=== PATIENT | male | born 1960 | race Caucasian/White ===

== ENCOUNTER 2018-02-01 13:56 | Observation (INO) | payer BC ==
[2018-02-01] VITALS (7 sets, daily range): BP systolic 117–179; BP diastolic 69–106; PULSE 58–76; RESP 18–22; TEMP 97.3–97.8; O2SAT 95–98
[~2018-02-01] VITALS: Ht 172.7 cm; Wt 126.0 kg
--- NOTE | 2018-02-01 14:23 | PD ---
HPI Chief Complaint: Chest Pain Time Seen by Provider: 14:21 Travel History International Travel<30 days: No Contact w/Intl Traveler<30days: No Traveled to known affect area: No History of Present Illness HPI 57-year-old male presents emergency department with history of substernal chest pain with radiation to the left arm which is been intermittent over the past 6 days. It is more prominent today. It is worse with exertion. Patient has history of CABG in 2011. 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 Patient took a baby aspirin this morning. Currently his pain is about a 4 out of 10. He denies shortness of breath. He denies recent illness, fever, nausea, vomiting, or other symptoms. States he is allergic to azithromycin. PFSH Past Medical History High Cholesterol: Yes Hypertension: Yes Myocardial Infarction: Yes Past Surgical History Coronary Artery Bypass Graft: Yes (DOUBLE BYPASS) Social History Alcohol Use: Yes (RARE) Tobacco Use: No (QUIT 1992) Substance Use: No Allergies-Medications (Allergen,Severity, Reaction): Coded Allergies: azithromycin (Verified Allergy, Intermediate, Rash, 02/01/18) Reported Meds & Prescriptions Reported Meds & Active Scripts Active Reported Zetia (Ezetimibe) 10 Mg Tab 10 Mg PO DAILY Atorvastatin (Atorvastatin Calcium) 40 Mg Tab 40 Mg PO HS Metoprolol Tartrate 25 Mg Tab 12.5 Mg PO BID Amlodipine (Amlodipine Besylate) 10 Mg Tab 10 Mg PO DAILY Lisinopril 10 Mg Tab 10 Mg PO DAILY Aspirin 81 Mg Chew 81 Mg CHEW DAILY Review of Systems Except as stated in HPI: all other systems reviewed are Neg General / Constitutional: No: Fever Eyes: No: Visual changes HENT: No: Headaches Cardiovascular: Positive: Chest Pain or Discomfort, Diaphoresis, Dyspnea on exertion, No: Palpitations, Irregular Rhythm, Tachycardia, Syncope, Varicosities , Edema, Cyanosis, Varicosities, Phlebitis, Claudication Respiratory: No: Shortness of Breath Gastrointestinal: No: Nausea, Vomiting, Abdominal Pain Genitourinary: No: Dysuria Musculoskeletal: No: Pain Skin: No Rash Neurologic: No: Weakness Psychiatric: No: Depression Endocrine: No: Polydipsia Hematologic/Lymphatic: No: Easy Bruising Physical Exam Narrative GENERAL: Patient appears in no obvious distress. SKIN: Warm and mild diaphoresis. Normal color. Turgor. HEAD: Atraumatic. Normocephalic. EYES: Pupils equal and round. No scleral icterus. No injection or drainage. ENT: No nasal bleeding or discharge. Mucous membranes pink and moist. Pharynx is clear. Airways patent. NECK: Trachea midline. No JVD. Supple nontender. CARDIOVASCULAR: Regular rate and rhythm. No murmurs gallops or rubs. RESPIRATORY: No accessory muscle use. Clear to auscultation. Breath sounds equal bilaterally. MUSCULOSKELETAL: Extremities without clubbing, cyanosis, or edema. No obvious deformities. NEUROLOGICAL: Awake and alert. No obvious cranial nerve deficits. Motor grossly within normal limits. Five out of 5 muscle strength in the arms and legs. Normal speech. PSYCHIATRIC: Appropriate mood and affect; insight and judgment normal. Data Data Last Documented VS Vital Signs Date Time Temp Pulse Resp B/P (MAP) Pulse Ox O2 Delivery O2 Flow Rate FiO2 02/01/18 14:27 Nasal Cannula 2.00 02/01/18 14:27 73 179/106 (130) 02/01/18 14:26 98 02/01/18 14:20 22 Orders Orders Electrocardiogram (02/01/18 14:23) Ckmb (Isoenzyme) Profile (02/01/18 14:23) Complete Blood Count With Diff (02/01/18 14:23) Comprehensive Metabolic Panel (02/01/18 14:23) Magnesium (Mg) (02/01/18 14:23) Prothrombin Time / Inr (Pt) (02/01/18 14:23) Act Partial Throm Time (Ptt) (02/01/18 14:23) Troponin I (02/01/18 14:23) Chest, Single Ap (02/01/18 14:23) Ecg Monitoring (02/01/18 14:23) Bilateral Bp Monitoring (02/01/18 14:23) Iv Access Insert/Monitor (02/01/18 14:23) Oximetry (02/01/18 14:23) Oxygen Administration (02/01/18 14:23) Aspirin Chew (Aspirin Chew) (02/01/18 14:30) Morphine Inj (Morphine Inj) (02/01/18 14:30) Nitroglycerin 2% Oint (Nitroglycerin 2% (02/01/18 14:30) Sodium Chloride 0.9% Flush (Ns Flush) (02/01/18 14:30) Sodium Chlorid 0.9% 500 Ml Inj (Ns 500 M (02/01/18 14:30) Labs Laboratory Tests Test 02/01/18 14:25 White Blood Count 7.8 TH/MM3 Red Blood Count 5.30 MIL/MM3 Hemoglobin 16.1 GM/DL Hematocrit 46.9 % Mean Corpuscular Volume 88.5 FL Mean Corpuscular Hemoglobin 30.4 PG Mean Corpuscular Hemoglobin Concent 34.4 % Red Cell Distribution Width 13.4 % Platelet Count 230 TH/MM3 Mean Platelet Volume 8.7 FL Neutrophils (%) (Auto) 64.0 % Lymphocytes (%) (Auto) 25.0 % Monocytes (%) (Auto) 9.2 % Eosinophils (%) (Auto) 1.3 % Basophils (%) (Auto) 0.5 % Neutrophils # (Auto) 5.0 TH/MM3 Lymphocytes # (Auto) 1.9 TH/MM3 Monocytes # (Auto) 0.7 TH/MM3 Eosinophils # (Auto) 0.1 TH/MM3 Basophils # (Auto) 0.0 TH/MM3 CBC Comment DIFF FINAL Differential Comment Prothrombin Time 10.2 SEC Prothromb Time International Ratio 1.0 RATIO Activated Partial Thromboplast Time 26.3 SEC Blood Urea Nitrogen 13 MG/DL Creatinine 1.35 MG/DL Random Glucose 193 MG/DL Total Protein 7.5 GM/DL Albumin 4.2 GM/DL Calcium Level 8.6 MG/DL Magnesium Level 2.3 MG/DL Alkaline Phosphatase 73 U/L Aspartate Amino Transf (AST/SGOT) 22 U/L Alanine Aminotransferase (ALT/SGPT) 52 U/L Total Bilirubin 0.5 MG/DL Sodium Level 139 MEQ/L Potassium Level 3.9 MEQ/L Chloride Level 102 MEQ/L Carbon Dioxide Level 27.8 MEQ/L Anion Gap 9 MEQ/L Estimat Glomerular Filtration Rate 54 ML/MIN Total Creatine Kinase 100 U/L Troponin I LESS THAN 0.02 NG/ML MDM Medical Decision Making Medical Screen Exam Complete: Yes Emergency Medical Condition: Yes Medical Record Reviewed: Yes Differential Diagnosis Atypical chest pain. Angina. STEMI. Non-STEMI. Narrative Course Patient appears medically stable at time of exam. EKG shows sinus rhythm with sinus arrhythmia. EKG is reviewed with Dr. Panchal who does not feel it reflects acute cardiac syndrome. Labs ordered including CBC, CMP, cardiac panel. IV access is obtained the patient is given 2 mg morphine IV as well as 500 mL of normal saline bolus per Patient is given 324 mg aspirin p.o. 2 inches of Nitropaste is placed. Chest x-ray is ordered. Chest x-ray is unremarkable for acute process per radiologist. CBC is unremarkable. Coagulation studies normal with a PT of 10.2, INR is 1.0. CMP significant for creatinine 1.35, GFR is 54, random glucose is elevated 193 otherwise no acute findings are noted. Troponin less than 0.02. Patient is pain-free on reassessment. Patient will be admitted to the chest pain center for further evaluation and treatment Diagnosis Primary Impression: Chest pain Qualified Codes: R07.9 - Chest pain, unspecified Admitting Information Admitting Physician Requests: Observation Condition: Stable Kenney Rodríguez February 01, 2018 14:23
[2018-02-01] MEDS ORDERED: AMLO10TA2 PO (14:25)
[2018-02-01] MEDS ORDERED: ASPI-516 CHEW (14:25)
[2018-02-01] MEDS ORDERED: EZET10 PO (14:25)
[2018-02-01] MEDS ORDERED: LISI10TA3 PO (14:25)
[2018-02-01] MEDS ORDERED: METO25TA3 PO (14:25)
[2018-02-01] MEDS ORDERED: ATOR40TA16 PO (14:25)
[2018-02-01] MEDS ORDERED: SODIUM CHLORIDE 0.9% FLUSH 10 ML FLUSH IVF PRN (14:30)
[2018-02-01] MEDS ORDERED: NITROGLYCERIN 2% OINT 1 GM PACKET TOP ONE (14:30)
[2018-02-01] MEDS ORDERED: SODIUM CHLORID 0.9% 500 ML INJ 500 ML IV ONE (14:30)
[2018-02-01] MEDS ORDERED: ASPIRIN 81 MG CHEW TAB PO ONE (14:30)
[2018-02-01] MEDS ORDERED: MORPHINE SULFATE 4 MG/ML INJ IV PUSH ONE (14:30)
--- NOTE | 2018-02-01 14:47 | RADRPT ---
EXAM DATE: 02/01/2018 2:40 PM EDT AGE/SEX: 57 years / Male INDICATIONS: Chest pain and shortness of breath. CLINICAL DATA: This is the patient's initial encounter. Patient reports that signs and symptoms have been present for 1 day and indicates a pain score of 5/10. MEDICAL/SURGICAL HISTORY: Diabetes mellitus type II. Heart. . Triple bypass. COMPARISON: No prior [facility] exams available for comparison. FINDINGS: Median sternotomy wires. No significant focal pleural or parenchymal opacities. Cardiac silhouette is borderline in size. Pulmonary vascularity is within normal limits given portable technique. Bony tho rax is intact. CONCLUSION: 1. Postsurgical features without acute abnormality. Electronically signed by: Endy Tovar MD 02/01/2018 2:46 PM EDT
--- NOTE | 2018-02-01 14:56 | PD ---
Physical Exam Date Seen by Provider: February 01, 2018 Time Seen by Provider: 14:51 Narrative The patient is a 57-year-old male was initially evaluated by in August ARVIN. Please refer to the initial history, physical, diagnostic evaluation, and treatment modality plan. Data Data Last Documented VS Vital Signs Date Time Temp Pulse Resp B/P (MAP) Pulse Ox O2 Delivery O2 Flow Rate FiO2 02/01/18 15:39 68 135/79 (97) 97 Nasal Cannula 02/01/18 14:27 2.00 02/01/18 14:20 22 Orders Orders Electrocardiogram (02/01/18 14:23) Ckmb (Isoenzyme) Profile (02/01/18 14:23) Complete Blood Count With Diff (02/01/18 14:23) Comprehensive Metabolic Panel (02/01/18 14:23) Magnesium (Mg) (02/01/18 14:23) Prothrombin Time / Inr (Pt) (02/01/18 14:23) Act Partial Throm Time (Ptt) (02/01/18 14:23) Troponin I (02/01/18 14:23) Chest, Single Ap (02/01/18 14:23) Ecg Monitoring (02/01/18 14:23) Bilateral Bp Monitoring (02/01/18 14:23) Iv Access Insert/Monitor (02/01/18 14:23) Oximetry (02/01/18 14:23) Oxygen Administration (02/01/18 14:23) Aspirin Chew (Aspirin Chew) (02/01/18 14:30) Morphine Inj (Morphine Inj) (02/01/18 14:30) Nitroglycerin 2% Oint (Nitroglycerin 2% (02/01/18 14:30) Sodium Chloride 0.9% Flush (Ns Flush) (02/01/18 14:30) Sodium Chlorid 0.9% 500 Ml Inj (Ns 500 M (02/01/18 14:30) Admit Order (Ed Use Only) (02/01/18 15:35) Labs Laboratory Tests Test 02/01/18 14:25 White Blood Count 7.8 TH/MM3 Red Blood Count 5.30 MIL/MM3 Hemoglobin 16.1 GM/DL Hematocrit 46.9 % Mean Corpuscular Volume 88.5 FL Mean Corpuscular Hemoglobin 30.4 PG Mean Corpuscular Hemoglobin Concent 34.4 % Red Cell Distribution Width 13.4 % Platelet Count 230 TH/MM3 Mean Platelet Volume 8.7 FL Neutrophils (%) (Auto) 64.0 % Lymphocytes (%) (Auto) 25.0 % Monocytes (%) (Auto) 9.2 % Eosinophils (%) (Auto) 1.3 % Basophils (%) (Auto) 0.5 % Neutrophils # (Auto) 5.0 TH/MM3 Lymphocytes # (Auto) 1.9 TH/MM3 Monocytes # (Auto) 0.7 TH/MM3 Eosinophils # (Auto) 0.1 TH/MM3 Basophils # (Auto) 0.0 TH/MM3 CBC Comment DIFF FINAL Differential Comment Prothrombin Time 10.2 SEC Prothromb Time International Ratio 1.0 RATIO Activated Partial Thromboplast Time 26.3 SEC Blood Urea Nitrogen 13 MG/DL Creatinine 1.35 MG/DL Random Glucose 193 MG/DL Total Protein 7.5 GM/DL Albumin 4.2 GM/DL Calcium Level 8.6 MG/DL Magnesium Level 2.3 MG/DL Alkaline Phosphatase 73 U/L Aspartate Amino Transf (AST/SGOT) 22 U/L Alanine Aminotransferase (ALT/SGPT) 52 U/L Total Bilirubin 0.5 MG/DL Sodium Level 139 MEQ/L Potassium Level 3.9 MEQ/L Chloride Level 102 MEQ/L Carbon Dioxide Level 27.8 MEQ/L Anion Gap 9 MEQ/L Estimat Glomerular Filtration Rate 54 ML/MIN Total Creatine Kinase 100 U/L Troponin I LESS THAN 0.02 NG/ML [facility] Medical Record Reviewed: Yes Supervised Visit with JOANN: Yes Interpretation(s) EKG reveals sinus rhythm with sinus arrhythmia. Wavy baseline aVF. Inverted T- wave in lead III. Q-wave noted in lead III and aVF. Last Impressions Chest X-Ray 02/01/18 8651 Signed Impressions: CONCLUSION: 1. Postsurgical features without acute abnormality. Laboratory Tests Test 02/01/18 14:25 White Blood Count 7.8 TH/MM3 Red Blood Count 5.30 MIL/MM3 Hemoglobin 16.1 GM/DL Hematocrit 46.9 % Mean Corpuscular Volume 88.5 FL Mean Corpuscular Hemoglobin 30.4 PG Mean Corpuscular Hemoglobin Concent 34.4 % Red Cell Distribution Width 13.4 % Platelet Count 230 TH/MM3 Mean Platelet Volume 8.7 FL Neutrophils (%) (Auto) 64.0 % Lymphocytes (%) (Auto) 25.0 % Monocytes (%) (Auto) 9.2 % Eosinophils (%) (Auto) 1.3 % Basophils (%) (Auto) 0.5 % Neutrophils # (Auto) 5.0 TH/MM3 Lymphocytes # (Auto) 1.9 TH/MM3 Monocytes # (Auto) 0.7 TH/MM3 Eosinophils # (Auto) 0.1 TH/MM3 Basophils # (Auto) 0.0 TH/MM3 CBC Comment DIFF FINAL Differential Comment Prothrombin Time 10.2 SEC Prothromb Time International Ratio 1.0 RATIO Activated Partial Thromboplast Time 26.3 SEC Blood Urea Nitrogen 13 MG/DL Creatinine 1.35 MG/DL Random Glucose 193 MG/DL Total Protein 7.5 GM/DL Albumin 4.2 GM/DL Calcium Level 8.6 MG/DL Magnesium Level 2.3 MG/DL Alkaline Phosphatase 73 U/L Aspartate Amino Transf (AST/SGOT) 22 U/L Alanine Aminotransferase (ALT/SGPT) 52 U/L Total Bilirubin 0.5 MG/DL Sodium Level 139 MEQ/L Potassium Level 3.9 MEQ/L Chloride Level 102 MEQ/L Carbon Dioxide Level 27.8 MEQ/L Anion Gap 9 MEQ/L Estimat Glomerular Filtration Rate 54 ML/MIN Total Creatine Kinase 100 U/L Troponin I LESS THAN 0.02 NG/ML Differential Diagnosis Differential diagnosis includes acute coronary syndrome, STEMI, cardiomyopathy, pulmonary embolism, GERD, esophageal spasm. Narrative Course IV was established, labs are drawn and sent, and the patient was placed on cardiac telemetry monitoring and continuous pulse oximetry monitoring. EKG was ordered and interpreted. Chest x-ray was obtained. The patient was administered Nitropaste and aspirin. The patient was initially evaluated by 80s of her PA-C, please refer to the initial history, physical, diagnostic evaluation, and treatment modality plan. The patient had a CABG approximately 5 years ago, had a stress test 1 year afterwards, but has not followed up with his small products assembler in several years. The patient does have a history of hypertension, hyperlipidemia, diabetes, and CAD with previous CABG. Chest x- ray is unremarkable. The patient's initial troponin is negative. The patient will be placed in a chest pain center for serial cardiac enzymes and further evaluation by cardiology for possible stress test. Physician Communication Physician Communication The patient will be 23 hour observation to the chest pain center for serial cardiac enzymes and further evaluation by cardiology for possible stress test. Diagnosis Primary Impression: Chest pain Qualified Codes: R07.9 - Chest pain, unspecified Admitting Information Admitting Physician Requests: Observation Condition: Stable Tru Panchal MD February 01, 2018 14:56
[2018-02-01 15:05] LABS: BASOPHIL % 0.5 % (0.0-2.0); EOSINOPHIL # 0.1 TH/MM3 (0-0.4); EOSINOPHIL % 1.3 % (0.0-4.0); HEMATOCRIT 46.9 % (39.0-51.0); HEMOGLOBIN 16.1 GM/DL (13.0-17.0); LYMPHOCYTE # 1.9 TH/MM3 (1.0-4.8); MEAN CELL VOLUME 88.5 FL (80.0-100.0); MEAN CORPUSCULAR HEMOGLOBIN 30.4 PG (27.0-34.0); MEAN CORPUSCULAR HGB CONC 34.4 % (32.0-36.0); MEAN PLATELET VOLUME 8.7 FL (7.0-11.0); MONO % 9.2 % (0.0-8.0); MONOCYTE # 0.7 TH/MM3 (0-0.9); PLATELET COUNT 230 TH/MM3 (150-450); RED CELL DISTRIBUTION WIDTH 13.4 % (11.6-17.2); WHITE BLOOD COUNT 7.8 TH/MM3 (4.0-11.0)
[2018-02-01 15:20] LABS: ALBUMIN 4.2 GM/DL (3.4-5.0); ALT (GPT) 52 U/L (12-78); AST (GOT) 22 U/L (15-37); BICARBONATE 27.8 MEQ/L (21.0-32.0); BLOOD UREA NITROGEN 13 MG/DL (7-18); CALCIUM 8.6 MG/DL (8.5-10.1); CHLORIDE 102 MEQ/L (98-107); CREATININE 1.35 MG/DL (0.60-1.30); GLOMERULAR FILTRATION RATE 54 ML/MIN (>89); GLUCOSE,RANDOM 193 MG/DL (74-106); MAGNESIUM 2.3 MG/DL (1.5-2.5); SODIUM (NA) 139 MEQ/L (136-145)
[2018-02-01 15:24] LABS: ALKALINE PHOSPHATASE 73 U/L (45-117); TOTAL BILIRUBIN ADULT 0.5 MG/DL (0.2-1.0); TOTAL PROTEIN 7.5 GM/DL (6.4-8.2); TROPONIN I LESS THAN 0.02 NG/ML (0.02-0.05)
[2018-02-01 15:25] LABS: PROTHROMBIN TIME - PATIENT 10.2 SEC (9.8-11.6)
[2018-02-01] MEDS ORDERED: METF500T PO (15:36)
[2018-02-01] MEDS ORDERED: ONDANSETRON ODT 4 MG TAB PO PRN (16:00)
[2018-02-01] MEDS ORDERED: NITROGLYCERIN 0.4 MG SL 25 TABS/BTL SL PRN (16:00)
--- NOTE | 2018-02-01 17:55 | HHI.HP ---
HPI Primary Care Physician PCP in [place], [place] Chief Complaint Chest pressure History of Present Illness 57-year-old male with history of coronary artery disease, CABG 2 (2011), hypertension, hyperlipidemia, and diabetes presents emergency room for further evaluation chest pressure. Onset "for a while" unable to give accurate account of weeks or months, stating "I try not to let anyone know and I don't tell my ." Endorses worsening of chest pressure on Sunday, after mowing his lawn. Location left anterior chest. Moderate severity. No radiation. Duration lasted all day, did not wax or wane in intensity. Associated symptoms included nausea, dyspnea, and diaphoresis. No known precipitating or relieving factors. In fact, states chest pressure and dyspnea never fully resolved this week. Worsening dyspnea after walking one flight of stairs with accompanying chest pressure. Dyspnea generally recovers within 5 minutes, however chest pressure lingers. Chest pressure persists. States Nitro paste "might have helped some." Endorses similar symptoms prior to CABG in 2011. Became dyspneic today after walking a flight of stairs. A coworker noticed his distress and encouraged him to come to ER. Review of Systems General: No fatigue, weakness, fever, chills, recent illness, or change in appetite. Progressively worse chest pressure "for some time now," occurring after exertion. HEENT: No ALLEN, no vision changes, no nasal congestion or drainage, no dysphasia, no GERD CV: Continues to have chest pressure as stated above. RESP: Exertional dyspnea, no resting dyspnea, no cough, wheeze, recent URI, hemoptysis, or history of asthma GI: Intermittent nausea x1 week not always occurring with chest pressure. No vomiting, bowel changes, diarrhea, constipation, pain, distention, melena, or blood in the stool. : No dysuria, urgency, or frequency. History of kidney stone. EXT: No lower leg edema, no paraesthesias MS: No discomfort, injury, or change in ROM NEURO: No change in memory, dizziness, difficulty with balance, LOC, or motor/ sensory deficits PSYCH: No anxiety, depression, or suicidal ideation SKIN: No rashes, no concerning lesions Past Family Social History Allergies: Coded Allergies: azithromycin (Verified Allergy, Intermediate, Rash, 02/01/18) Past Medical History Coronary artery disease, hypertension, hyperlipidemia, diabetes, MS, renal calculi Past Surgical History CABG 2 (2011-[facility]) Reported Medications Reported Meds & Active Scripts Active Reported Metformin (Metformin HCl) 500 Mg Tab 500 Mg PO DAILY Zetia (Ezetimibe) 10 Mg Tab 10 Mg PO DAILY Atorvastatin (Atorvastatin Calcium) 40 Mg Tab 40 Mg PO HS Metoprolol Tartrate 25 Mg Tab 12.5 Mg PO BID Amlodipine (Amlodipine Besylate) 10 Mg Tab 10 Mg PO DAILY Lisinopril 10 Mg Tab 10 Mg PO DAILY Aspirin 81 Mg Chew 81 Mg CHEW DAILY Active Ordered Medications Current Medications Medications (Trade) Dose Ordered Sig/Saida Route Start Time Stop Time Status Last Admin (NS Flush) 2 ml UNSCH PRN IVF 02/01/18 14:30 (NS Flush) 2 ml BID IV FLUSH 02/01/18 21:00 (Tylenol) 500 mg Q4H PRN PO 02/01/18 16:00 (Nitrostat Sl) 0.4 mg Q5M PRN SL 02/01/18 16:00 (Aspirin) 325 mg DAILY PO 02/02/18 09:00 (Zofran Odt) 4 mg Q6H PRN PO 02/01/18 16:00 Family History Positive for early onset cardiovascular disease. Father required angioplasties in mid 40s. Social History Known coronary artery disease, hypertension, hyperlipidemia, and diabetes. Former smoker quit 1992. States smoking less than one half pack daily. Denies any alcohol or illegal drug use. . 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 No recent cardiac testing. Last chemical stress test in 2012. No history of congestive heart failure. Physical Exam Vital Signs Vital Signs Date Time Temp Pulse Resp B/P (MAP) Pulse Ox O2 Delivery O2 Flow Rate FiO2 02/01/18 15:39 68 135/79 (97) 97 Nasal Cannula 02/01/18 14:27 Nasal Cannula 2.00 02/01/18 14:27 73 179/106 (130) 02/01/18 14:26 98 Room Air 02/01/18 14:25 Room Air 02/01/18 14:20 74 22 97 Room Air Physical Exam GENERAL: Alert WN, WD, NAD, pleasant, obese, male HEAD: NC, AT EYES: Sclera clear, conjunctiva without injection, pupils equal and round ENT: Mucous membranes pink and moist, no nasal discharge or bleeding CV: RRR, without murmur, rub, gallop, no JVD, S1-S2 no S3-S4. Chest wall nontender with palpation. RESP: Clear lungs throughout bilateral, no crackles, wheeze, rhonchi, symmetrical chest rise, nonlabored, able to speak in full sentences ABD: Soft, NT, ND, no masses, positive bowel tones EXT: Pulses +2x4, no dependent edema MS: Normal tone x4 extremities, no obvious deformities, full range of motion NEURO: CN II through CN XII grossly intact, motor strength 5/5 PSYCH: A+O x3, flat affect, appropriate speech, mood. Questionable insight and judgment. SKIN: Normal turgor, normal texture, no lesions, no rashes, brisk cap refill, even hair distribution Laboratory Laboratory Tests Test 02/01/18 14:25 White Blood Count 7.8 Red Blood Count 5.30 Hemoglobin 16.1 Hematocrit 46.9 Mean Corpuscular Volume 88.5 Mean Corpuscular Hemoglobin 30.4 Mean Corpuscular Hemoglobin Concent 34.4 Red Cell Distribution Width 13.4 Platelet Count 230 Mean Platelet Volume 8.7 Neutrophils (%) (Auto) 64.0 Lymphocytes (%) (Auto) 25.0 Monocytes (%) (Auto) 9.2 Eosinophils (%) (Auto) 1.3 Basophils (%) (Auto) 0.5 Neutrophils # (Auto) 5.0 Lymphocytes # (Auto) 1.9 Monocytes # (Auto) 0.7 Eosinophils # (Auto) 0.1 Basophils # (Auto) 0.0 CBC Comment DIFF FINAL Differential Comment Prothrombin Time 10.2 Prothromb Time International Ratio 1.0 Activated Partial Thromboplast Time 26.3 Blood Urea Nitrogen 13 Creatinine 1.35 Random Glucose 193 Total Protein 7.5 Albumin 4.2 Calcium Level 8.6 Magnesium Level 2.3 Alkaline Phosphatase 73 Aspartate Amino Transf (AST/SGOT) 22 Alanine Aminotransferase (ALT/SGPT) 52 Total Bilirubin 0.5 Sodium Level 139 Potassium Level 3.9 Chloride Level 102 Carbon Dioxide Level 27.8 Anion Gap 9 Estimat Glomerular Filtration Rate 54 Total Creatine Kinase 100 Troponin I LESS THAN 0.02 Result Diagram: 02/01/18 1425 02/01/18 1425 Imaging Last 48 hours Impressions Chest X-Ray 02/01/18 1423 Signed Impressions: CONCLUSION: 1. Postsurgical features without acute abnormality. Course EKG Normal sinus rhythm, normal axis, no ST-T segment changes, Q waves inferiorly Caprini VTE Risk Assessment Caprini VTE Risk Assessment: No/Low Risk (score <= 1) Caprini Risk Assessment Model Point Value = 1 Point Value = 2 Point Value = 3 Point Value = 5 Age 41-60 Minor surgery BMI > 25 kg/m2 Swollen legs Varicose veins or History of unexplained or recurrent spontaneous Oral contraceptives or hormone replacement Sepsis (< 1 month) Serious lung disease, including pneumonia (< 1 month) Abnormal pulmonary function Acute myocardial infarction Congestive heart failure (< 1 month) History of inflammatory bowel disease Medical patient at bed rest Age 61-74 Arthroscopic surgery Major open surgery (> 45 min) Laparoscopic surgery (> 45 min) Malignancy Confined to bed (> 72 hours) Immobilizing plaster cast Central venous access Age >= 75 History of VTE Family history of VTE Factor V Leiden Prothrombin [id number] Lupus anticoagulant Anticardiolipin antibodies Elevated serum homocysteine Heparin-induced thrombocytopenia Other congenital or acquired thrombophilia Stroke (< 1 month) Elective arthroplasty Hip, pelvis, or leg fracture Acute spinal cord injury (< 1 month) Prophylaxis Regimen Total Risk Factor Score Risk Level Prophylaxis Regimen 0-1 Low Early ambulation 2 Moderate Order ONE of the following: *Sequential Compression Device (SCD) *Heparin 5000 units SQ BID 3-4 Higher Order ONE of the following medications: *Heparin 5000 units SQ TID *Enoxaparin/Lovenox 40 mg SQ daily (WT < 150 kg, CrCl > 30 mL/min) *Enoxaparin/Lovenox 30 mg SQ daily (WT < 150 kg, CrCl > 10-29 mL/min) *Enoxaparin/Lovenox 30 mg SQ BID (WT < 150 kg, CrCl > 30 mL/min) AND/OR *Sequential Compression Device (SCD) 5 or more Highest Order ONE of the following medications: *Heparin 5000 units SQ TID (Preferred with Epidurals) *Enoxaparin/Lovenox 40 mg SQ daily (WT < 150 kg, CrCl > 30 mL/min) *Enoxaparin/Lovenox 30 mg SQ daily (WT < 150 kg, CrCl > 10-29 mL/min) *Enoxaparin/Lovenox 30 mg SQ BID (WT < 150 kg, CrCl > 30 mL/min) AND *Sequential Compression Device (SCD) Assessment and Plan Assessment and Plan #1 Atypical chest pain-chest pain center. Rule out with 3 sets of EKGs, cardiac enzymes, monitor on telemetry overnight. Will be seen and evaluated by Dr. Washington Strickland in a.m. Duration of chest pressure and dyspnea symptoms atypical, however, due to reported similar symptoms prior to CABG and multiple risk factors discussed likely a chemical stress test will be ordered if ruled out overnight. Verbalizes understanding and agreeable to plan of care. Nitro past 0.5"" Q6H with order to remove if develops severe headache. Continue Zetia , atorvastatin, metoprolol, amlodipine, and lisinopril. Encouraged upon discharge following up with his PCP and discuss with school resource officer completing a cardiac rehab due to his concerns of exercise. #2 History of type II diabetes-hold metformin, SSI low dose coverage. Discussed in length importance of lifestyle modifications including diet and increase exercise daily. Mamta Iraheta February 01, 2018 17:55
[2018-02-01] MEDS ORDERED: DEXTROSE 50% IN WATER 50 ML VIAL(D50) IV PUSH PRN (18:00)
[2018-02-01] MEDS ORDERED: GLUCAGON 1 MG/ML VIAL OTHER PRN (18:00)
[2018-02-01] MEDS ORDERED: PILL SPLITTER OTHER PRN (18:15)
[2018-02-01 18:30] LABS: TROPONIN I LESS THAN 0.02 NG/ML (0.02-0.05)
[2018-02-01] MEDS: ACETAMINOPHEN 500 MG CPLT PO PRN (19:55)
[2018-02-01] MEDS: METOPROLOL TARTRATE 25 MG TAB PO SCH (19:55)
[2018-02-01] MEDS: NITROGLYCERIN 2% OINT 1 GM PACKET TOPICAL SCH (19:55)
[2018-02-01] MEDS: SODIUM CHLORIDE 0.9% FLUSH 10 ML FLUSH IV FLUSH SCH (19:59)
[2018-02-01] MEDS ORDERED: ATORVASTATIN 40 MG TAB PO SCH (21:00)
[2018-02-01 21:29] LABS: TROPONIN I LESS THAN 0.02 NG/ML (0.02-0.05)
[2018-02-01] MEDS: INSULIN ASPART SUPPLEMENTAL SCALE SQ SCH (21:29)
[2018-02-02] MEDS: NITROGLYCERIN 2% OINT 1 GM PACKET TOPICAL SCH ×3 (00:02→12:19)
[2018-02-02 03:04] VITALS: BP 130/76; PULSE 70; RESP 18; TEMP 97.6; O2SAT 96
[2018-02-02] MEDS: METOPROLOL TARTRATE 25 MG TAB PO SCH (08:27)
[2018-02-02] MEDS: SODIUM CHLORIDE 0.9% FLUSH 10 ML FLUSH IV FLUSH SCH (08:29)
[2018-02-02 08:30] VITALS: BP 144/70; PULSE 70; RESP 20; TEMP 98.2; O2SAT 96
[2018-02-02] MEDS: INSULIN ASPART SUPPLEMENTAL SCALE SQ SCH ×2 (08:30→12:19)
[2018-02-02 08:37] VITALS: PULSE 70
[2018-02-02] MEDS ORDERED: ASPIRIN 325 MG TAB PO SCH (09:00)
[2018-02-02] MEDS ORDERED: LISINOPRIL 10 MG TAB PO SCH (09:00)
[2018-02-02] MEDS ORDERED: EZETIMIBE 10 MG TAB PO SCH (09:00)
[2018-02-02] MEDS ORDERED: REGADENOSON INJ 0.4 MG/5 ML SYR ONE (09:32)
--- NOTE | 2018-02-02 11:53 | RADRPT ---
EXAM DATE: 02/02/2018 11:47 AM EDT AGE/SEX: 57 years / Male INDICATIONS:Angina. . Left chest pain with nausea, dyspnea and diaphoresis. CLINICAL DATA: This is the patient's initial encounter. Patient reports that signs and symptoms have been present for 1 day and indicates a pain score of 5/10. MEDICAL/SURGICAL HISTORY: Hypercholesterolemia. Hypertension. Diabetes mellitus type II. [place] cardial infarction. CABG. COMPARISON: No prior [facility] exams available for comparison. DOSE: 35 mCi Tc 99m Myoview at stress 11 mCi [id number] at rest 0.4 mg Lexiscan STRESS SYMPTOMS: Lightheadedness, nausea and hot feeling. EJECTION FRACTION: 68 % TECHNIQUE: The patient underwent pharmacologic stress with infusion of prescribed dose. Continuous ECG tracing was monitored during stress. Gated SPECT imaging was performed after stress and conventi onal SPECT imaging was performed at rest. The examination was performed on a SPECT/CT scanner, both attenuation and non-corrected datasets were reviewed. FINDINGS: Distribution: The maximum perfused segment at stress is in the septal wall. Perfusion Study: The pattern of perfusion at stress is within normal limits. Gated Study: There are intact wall motion and wall thickening without hypokinetic or dyskinetic segm ents. The ejection fraction is calculated at 68%. RISK CATEGORY: Low (<1% Annual Motality Rate) CONCLUSION: 1. Unremarkable myocardial perfusion exam. Electronically signed by: Willi Daniels MD 02/02/2018 11:52 AM EDT
--- NOTE | 2018-02-02 12:08 | HHI.DCPOC ---
Discharge Care Plan Diagnosis: (1) Chest pain (2) CAD (coronary artery disease) (3) Hx of CABG (4) Hypertension (5) Hyperlipidemia (6) DM (diabetes mellitus) Goals to Promote Your Health * To prevent worsening of your condition and complications * To maintain your health at the optimal level Directions to Meet Your Goals Take your medications as prescribed Follow your dietary instruction Follow activity as directed Keep your appointments as scheduled Take your immunizations and boosters as scheduled If your symptoms worsen call your PCP, if no PCP go to Urgent Care Center or Emergency Room Smoking is Dangerous to Your Health. Avoid second hand smoke Call the 24-hour hour crisis hotline for domestic abuse at [facility] February 02, 2018 12:08
[2018-02-02 12:29] VITALS: BP 142/82; PULSE 77; RESP 16; TEMP 98; O2SAT 96
--- NOTE | 2018-02-02 12:38 | TR ---
Date Performed: 02/02/2018 Time Performed: 10:00:56 DOCTOR: Washington Strickland DRUG LIST: CLINICAL HISTORY: REASON FOR TEST: CHEST PAIN REASON FOR ENDING: OBSERVATION: CONCLUSION: COMMENTS: Lexiscan stress test was performed under standard four minute protocol. Radionuclide was injected one minute prior to ending the test. No electrocardiographic abormalities were present t o suggest ischemia. Nuclear imaging and interpretation are pending.
[2018-02-02] MEDS: ACETAMINOPHEN 500 MG CPLT PO PRN (15:25)
--- NOTE | 2018-02-02 15:49 | EKG ---
Date Performed: 02/01/2018 Time Performed: 20:39:51 PTAGE: 57 years EKG: Sinus rhythm INFERIOR MYOCARDIAL INFARCTION ABNORMAL ECG Since PREVIOUS TRACING , no significant change noted DOCTOR: Washington Strickland Interpretating Date/Time 02/02/2018 15:48:29
--- NOTE | 2018-02-02 15:50 | EKG ---
Date Performed: 02/01/2018 Time Performed: 17:47:07 PTAGE: 57 years EKG: Sinus rhythm INFERIOR MYOCARDIAL INFARCTION ABNORMAL ECG PREVIOUS TRACING : 02/01/2018 17.45 Since previous tracing, no significant change noted DOCTOR: Washington Strickland Interpretating Date/Time 02/02/2018 15:49:54
--- NOTE | 2018-02-02 15:52 | EKG ---
Date Performed: 02/01/2018 Time Performed: 14:20:29 PTAGE: 57 years EKG: Sinus rhythm WITH SINUS ARRHYTHMIA MINIMAL VOLTAGE CRITERIA FOR LVH, CONSIDER NORMAL VARIANT INFERIOR MYOCARDIAL INFARCTION ABNORMAL ECG NO PREVIOUS TRACING DOCTOR: Washington Strickland Interpretating Date/Time 02/02/2018 15:51:29
--- NOTE | 2018-02-02 15:52 | EKG ---
Date Performed: 02/01/2018 Time Performed: 16:16:58 PTAGE: 57 years EKG: Sinus rhythm WITH OCCASIONAL SUPRAVENTRICULAR PREMATURE COMPLEXES INFERIOR MYOCARDIAL INFARCTION ABNORMAL ECG PREVIOUS TRACING : 02/01/2018 14.20 Since previous tracing, no significant change noted DOCTOR: Washington Strickland Interpretating Date/Time 02/02/2018 15:50:19
== END 2018-02-02 17:08 | disposition home or self-care (01) ==
LOC: NEPE 13:56 → NEDA 15:37 → NEPFCDU 19:48
PROVIDERS: ADMIT Internal Medicine Interventional Cardiology; ATTEND Internal Medicine Interventional Cardiology
DX: R07.9 Chest pain, unspecified (principal); E78.00 Pure hypercholesterolemia, unspecified; I10 Essential (primary) hypertension; I25.2 Old myocardial infarction; I25.10 Atherosclerotic heart disease of native coronary artery without angina pectoris; E78.5 Hyperlipidemia, unspecified; E11.9 Type 2 diabetes mellitus without complications; R94.31 Abnormal electrocardiogram [ECG] [EKG]; R06.00 Dyspnea, unspecified; Z82.49 Family history of ischemic heart disease and other diseases of the circulatory system; Z95.1 Presence of aortocoronary bypass graft
CPT/HCPCS: 71045; 78452; 80053; 82550; 82948; 83735; 84484; 85025; 85610; 85730; 93005; 93017; 96361; 96374; 99285; A9502; G0378; J2270; J2785; J7040